=== PATIENT | female | born 1995 | race Caucasian/White ===

== ENCOUNTER → 2019-01-07 | Outpatient (CLI) | payer OTHER ==
[2019-01-07 14:13] LABS: BASOPHIL % 0.6 % (0.0-0.2); EOSINOPHIL % 0.4 % (0.0-5.0); LYMPHOCYTES # 1.9 10^3/uL (1.0-4.8); LYMPHOCYTES % 39.8 % (24.0-44.0); MEAN CORP HGB 33.9 pg (26-34); MONOCYTES # 0.4 10^3/uL (0.3-0.8); MONOCYTES % 7.4 % (5.0-12.0); NEUTROPHIL # 2.5 10^3/uL (1.8-7.7); NEUTROPHILS % 51.6 % (41.0-85.0); RED CELL DISTRIBUTION WIDTH 12.7 % (11.5-14.5)
[2019-01-07 14:38] LABS: CALCIUM 9.4 mg/dL (8.4-10.5); CARBON DIOXIDE 27.6 mmol/L (20.0-32)
--- NOTE | 2019-01-07 17:32 | DIREP ---
PROCEDURE:MRI JOINT LOWER EXTREMITY-RT W/O COMPARISON:None. INDICATIONS:M25.561 PAIN IN RIGHT KNEE TECHNIQUE:A complete multi-planar MRI was performed. 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 High-grade chondral thinning of the medial femoral trochlear cartilage. MEDIAL COMPARTMENT MEDIAL MENISCUS:Normal. No visible tear or significant degeneration. HYALINE CARTILAGE:Normal. No visible defect. BONES:Normal. No marrow pathology, fracture, or significant arthropathy. MCL AND MEDIAL CAPSULE:Normal medial collateral ligament and medial capsule. LATERAL COMPARTMENT LATERAL MENISCUS:Normal. No visible tear or significant degeneration. HYALINE CARTILAGE:Normal. No visible defect. BONES:Normal. No marrow pathology, fracture, or significant arthropathy. LCL/POSTEROLAT. COMPLEX:Normal lateral collateral ligament, fascicles, lateral capsule and ligaments. ACL:Normal appearing ligament. PCL:Normal appearing ligament. MENISCOFEMORAL:Normal meniscofemoral ligaments. EFFUSION:None. No synovitis or loose bodies. OTHER:Tibial tuberosity to trochlear groove interval 1.1 cm. Posterior mass associated with the neurovascular bundle measuring 1.5 x 1.4 x 3.0 cm. Contrast-enhanced follow-up recommended to exclude sheath tumor. CONCLUSION: 1. Possible nerve sheath tumor posteriorly. Recommend contrast-enhanced follow-up. 2. High-grade medial patellofemoral chondromalacia with normal tibial tuberosity to trochlear groove interval. Dictated by: Riley Bentley DO on 01/07/2019 at 05:26 PM
== END | disposition home or self-care (01) ==
LOC: RAD 13:55
PROVIDERS: ATTEND Internal Medicine
DX: M94.261 Chondromalacia, right knee (principal)
CPT/HCPCS: 36415; 73721; 80053; 80061; 84439; 84443; 85025

== ENCOUNTER → 2019-01-12 | Outpatient (CLI) | payer OTHER ==
--- NOTE | 2019-01-12 14:21 | DIREP ---
PROCEDURE: MRI JOINT LOWER EXTREMITY-RT W&W/O COMPARISON:[facility], MR, MRI JOINT LOWER EXTREMITY-RT W/O, 01/07/2019, 03:12 PM. INDICATIONS:M25.561 PAIN IN RIGHT KNEE Technique: Coronal T1 fat sat, axial T1 fat sat and sagittal T1 fat sat sequences were obtained of the right knee with and without intravenous administration of gadolinium. FINDINGS: Menisci: The medial and lateral menisci are intact. Cruciate ligaments: The anterior and posterior cruciate ligaments are normal. Bones and joints space: The amount of joint fluid is within physiologic range. There are no loose bodies. There is no fracture, marrow edema, destructive intraosseous lesion or evidence of avascular necrosis. The articular cartilage in all 3 compartments is intact. Collateral ligaments: The medial and lateral collateral ligaments are intact. Extensor mechanism: The quadriceps and patellar tendons are normal. The patella is intact. There is thinning of the articular cartilage across the central median ridge with small subchondral cystic changes. The medial and lateral retinacula are normal. The pre-femoral, suprapatellar and infrapatellar fat pads are normal. There is no prepatellar or infrapatellar bursitis. Miscellaneous: The muscles and tendons about the knee are intact. Soft tissue density described on previous study in the popliteal fossa corresponds to a dilated popliteal vein. The popliteal artery is normal. The tibial nerve is normal. The tibiofibular joint is normal. There is no Segura's cyst. CONCLUSION: 1. Chondromalacia patella. 2. Dilated popliteal vein. No evidence of nerve sheath tumor. Dictated by: Alfredo Flores M.D. on 01/12/2019 at 02:10 PM
== END | disposition home or self-care (01) ==
LOC: RAD 11:20
PROVIDERS: ATTEND Internal Medicine
DX: M22.41 Chondromalacia patellae, right knee (principal); I83.891 Varicose veins of right lower extremity with other complications; M25.861 Other specified joint disorders, right knee
CPT/HCPCS: 73723; A9579